=== PATIENT | female | born 1995 | race Caucasian/White ===

== ENCOUNTER 2019-04-24 20:03 | Emergency (ER) | payer MEDICARE, MEDICAID ==
[~2019-04-24] VITALS: Ht 165.1 cm; Wt 108.0 kg
[~2019-04-24 20:03] MED LIST: BACTRIM DS 8001 TA1 PO; BACTRIM DS 8001 TAB PO; CARAFATE1 G1 PO; CEPHALEXIN500 M1 PO; CIPRO250 MG PO; CLEOCIN150 MG PO; DOXYCYCLINE100 M4 PO; ELMIRON100 MG PO; FLAGYL500 MG PO; KEFLEX500 MG PO; LIDEX0.05% T; LOMOTIL 0.025 M1 TA1 PO; MACROBID100 M1 PO; MOTRIN800 MG PO; Motrin,Rufen800 MG PO; NKHM; NORCO 325 MG-51 TAB PO; OMEPRAZOLE20 M2 PO; Orphenadrine C100 MG PO; PERIDEX 480 ML480 ML PO; PRENATAL1 TA3 PO; ULTRAM50 MG PO; VIBRAMYCIN100 MG PO; ZOFRAN ODT4 MG SL; ZOFRAN4 MG PO
[2019-04-24 20:38] LABS: BASO % 0.2 % (0.0-1.0); EOS # 0.3 10*3/uL (0.0-0.4); EOS % 2.8 % (1.0-4.0); HEMATOCRIT 38.4 % (37.0-47.0); HEMOGLOBIN 11.9 g/dl (12.0-16.0); LYMPH % 20.2 % (27.0-41.0); MEAN CELL VOLUME 82.2 fl (81.0-99.0); MEAN CORPUSCULAR HGB 25.5 pg (27.0-31.0); MONO # 0.6 10*3/uL (0.1-1.0); MONO % 6.1 % (3.0-9.0); NEUT # 6.8 10*3/uL (2.3-7.9); NEUT % 70.4 % (47.0-73.0); PLATELET COUNT AUTOMATED 275 10*3/uL (130-400); RED BLOOD COUNT 4.67 10*6/uL (4.10-5.10); RED CELL DISTRI WIDTH 14.2 % (0-14.5); WHITE BLOOD COUNT 9.6 10*3/uL (4.8-10.8)
[2019-04-24 20:44] LABS: BILIRUBIN 1+ (NEGATIVE); BLOOD NEGATIVE (NEGATIVE); CLARITY SL CLOUDY (CLEAR); COLOR YELLOW (YELLOW); GLUCOSE NEGATIVE (NEGATIVE); KETONE TRACE (NEGATIVE); LEUKO ESTERASE NEGATIVE (NEGATIVE); NITRITE NEGATIVE (NEGATIVE); PH 5.5 (5.0-9.0); SPECIFIC GRAVITY >= 1.030 (1.005-1.030)
[2019-04-24 20:46] LABS: BACTERIA 1+; EPITHELIAL CELLS 0-2; MUCOUS 1+; WBC 0-2 wbc/hpf (0-5)
[2019-04-24 20:56] LABS: ALBUMIN 3.1 gm/dl (3.1-4.5); ALKALINE PHOSPHATASE 54 U/L (45-117); BUN 4 mg/dl (7-24); CHLORIDE 106 mmol/L (98-107); CREATININE 0.62 mg/dL (0.55-1.02); POTASSIUM 3.5 mmol/L (3.5-5.1); SGOT/AST 9 IU/L (3-35); SGPT/ALT 15 U/L (12-78); SODIUM 138 mmol/L (136-145); TOTAL PROTEIN 7.4 gm/dL (6.4-8.2)
== END 2019-04-24 22:10 | disposition home or self-care (01) ==
LOC: ED 20:03
PROVIDERS: Nurse Practitioner Family
DX: O23.41 Unspecified infection of urinary tract in pregnancy, first trimester (principal); Z3A.13 13 weeks gestation of pregnancy; Z79.2 Long term (current) use of antibiotics; Z79.899 Other long term (current) drug therapy

== ENCOUNTER → 2019-07-16 | Outpatient (CLI) | payer MEDICARE, MEDICAID | END | disposition home or self-care (01) | LOC: US 11:30 | DX: Z34.82 Encounter for supervision of other normal pregnancy, second trimester (principal); Z3A.25 25 weeks gestation of pregnancy ==

== ENCOUNTER → 2019-08-29 | Outpatient (CLI) | payer BC, MEDICARE, MEDICAID | END | disposition home or self-care (01) | LOC: US 14:00 | DX: Z34.93 Encounter for supervision of normal pregnancy, unspecified, third trimester (principal); Z3A.32 32 weeks gestation of pregnancy ==

== ENCOUNTER → 2019-09-23 | Outpatient (CLI) | payer BC, MEDICARE, MEDICAID | END | disposition home or self-care (01) | LOC: US 11:30 | DX: Z34.90 Encounter for supervision of normal pregnancy, unspecified, unspecified trimester (principal); Z3A.35 35 weeks gestation of pregnancy ==

== ENCOUNTER 2019-09-30 13:48 | Emergency (ER) | payer BC, MEDICARE, MEDICAID ==
[~2019-09-30] VITALS: Ht 167.6 cm; Wt 110.7 kg
== END 2019-09-30 14:45 | disposition home or self-care (01) ==
LOC: ED 13:48
DX: O26.893 Other specified pregnancy related conditions, third trimester (principal); N89.8 Other specified noninflammatory disorders of vagina; Z3A.36 36 weeks gestation of pregnancy; Z79.899 Other long term (current) drug therapy; Z79.2 Long term (current) use of antibiotics

== ENCOUNTER → 2020-05-28 | Outpatient (CLI) | payer MEDICARE, MEDICAID | END | disposition home or self-care (01) | LOC: US 11:30 | DX: Z33.1 Pregnant state, incidental (principal); Z3A.11 11 weeks gestation of pregnancy ==

== ENCOUNTER → 2020-10-21 | Outpatient (CLI) | payer MEDICARE, MEDICAID | END | disposition home or self-care (01) | LOC: US 15:00 | PROVIDERS: ATTEND Obstetrics & Gynecology | DX: Z34.83 Encounter for supervision of other normal pregnancy, third trimester (principal); Z3A.32 32 weeks gestation of pregnancy ==

== ENCOUNTER 2020-11-16 13:53 | Emergency (ER) | payer MEDICARE, MEDICAID ==
[~2020-11-16] VITALS: Ht 167.6 cm; Wt 108.0 kg
[2020-11-16] MEDS ORDERED: PROVENTIL HFA6.7 GM INH (14:46)
[2020-11-16] MEDS ORDERED: PREDNISONE20 M1 PO (14:46)
== END 2020-11-16 16:18 | disposition home or self-care (01) ==
LOC: ED 13:53
DX: O26.893 Other specified pregnancy related conditions, third trimester (principal); O99.333 Smoking (tobacco) complicating pregnancy, third trimester; F17.210 Nicotine dependence, cigarettes, uncomplicated; Z3A.35 35 weeks gestation of pregnancy; Z79.899 Other long term (current) drug therapy; Z20.822 Contact with and (suspected) exposure to COVID-19

== ENCOUNTER 2021-08-04 17:41 | Emergency (ER) | payer MEDICARE, OTHER ==
[~2021-08-04] VITALS: Wt 99.8 kg
[~2021-08-04 17:41] MED LIST changes: +PREDNISONE20 M1 PO; +PROVENTIL HFA6.7 GM INH
== END 2021-08-04 18:38 | disposition home or self-care (01) ==
LOC: ED 17:41
DX: O20.9 Hemorrhage in early pregnancy, unspecified (principal); Z79.899 Other long term (current) drug therapy; Z3A.10 10 weeks gestation of pregnancy

== ENCOUNTER 2021-08-04 23:27 | Emergency (ER) | payer OTHER ==
[~2021-08-04] VITALS: Ht 167.6 cm; Wt 99.8 kg
== END 2021-08-05 00:13 | disposition home or self-care (01) ==
LOC: ED 23:27
DX: O03.9 Complete or unspecified spontaneous abortion without complication (principal); Z3A.10 10 weeks gestation of pregnancy; Z79.899 Other long term (current) drug therapy

== ENCOUNTER 2022-02-28 18:15 | Emergency (ER) | payer OTHER | END 2022-02-28 20:24 | disposition left against medical advice (07) | LOC: ED 18:15 | DX: K08.89 Other specified disorders of teeth and supporting structures (principal); Z53.21 Procedure and treatment not carried out due to patient leaving prior to being seen by health care provider ==

== ENCOUNTER 2023-03-13 21:26 | Emergency (ER) | payer OTHER ==
[~2023-03-13] VITALS: Ht 167.6 cm; Wt 104.3 kg
== END 2023-03-13 22:47 | disposition home or self-care (01) ==
LOC: ED 21:26
DX: Z33.1 Pregnant state, incidental (principal); Z98.51 Tubal ligation status; H92.01 Otalgia, right ear; K08.89 Other specified disorders of teeth and supporting structures

== ENCOUNTER 2023-10-04 18:09 | Emergency (ER) | payer OTHER ==
[~2023-10-04] VITALS: Ht 165.1 cm; Wt 99.8 kg
== END 2023-10-04 21:07 | disposition home or self-care (01) ==
LOC: ED 18:09
DX: S93.402A Sprain of unspecified ligament of left ankle, initial encounter (principal); Z98.51 Tubal ligation status; W18.40XA Slipping, tripping and stumbling without falling, unspecified, initial encounter; Y93.01 Activity, walking, marching and hiking; Y92.89 Other specified places as the place of occurrence of the external cause; Y99.8 Other external cause status

== ENCOUNTER 2024-09-06 22:54 | Emergency (ER) | payer MEDICARE ==
[~2024-09-06] VITALS: Ht 167.6 cm; Wt 95.3 kg
[2024-09-07] MEDS ORDERED: MEDROL DOSEPAK4 MG PO (00:39)
== END 2024-09-07 00:42 | disposition home or self-care (01) ==
LOC: ED 22:54
DX: B34.9 Viral infection, unspecified (principal); Z20.822 Contact with and (suspected) exposure to COVID-19; Z98.51 Tubal ligation status

== ENCOUNTER 2024-11-24 20:14 | Emergency (ER) | payer MEDICARE ==
[~2024-11-24] VITALS: Ht 167.6 cm; Wt 98.0 kg
[~2024-11-24 20:14] MED LIST changes: +MEDROL DOSEPAK4 MG PO
[2024-11-24] MEDS ORDERED: methylPREDNISolone sod succ 125 MG VIAL IM ONE (21:40)
[2024-11-24] MEDS ORDERED: PREDNISONE20 M1 PO (21:58)
[2024-11-24] MEDS ORDERED: ZITHROMAX250 MG PO (21:58)
== END 2024-11-24 21:58 | disposition home or self-care (01) ==
LOC: ED 20:14
DX: B34.9 Viral infection, unspecified (principal); Z20.822 Contact with and (suspected) exposure to COVID-19; Z98.51 Tubal ligation status

== ENCOUNTER 2025-03-07 07:55 | Emergency (ER) | payer MEDICARE ==
[~2025-03-07] VITALS: Ht 167.6 cm; Wt 96.2 kg
[~2025-03-07 07:55] MED LIST changes: +ZITHROMAX250 MG PO
[2025-03-07] MEDS ORDERED: ACETAMINOPHEN 325 MG TAB PO ONE (08:45)
[2025-03-07 09:04] LABS: BASO % 0.4 % (0.0-1.0); EOS # 0.2 10*3/uL (0.0-0.4); EOS % 2.8 % (1.0-4.0); HEMATOCRIT 38.8 % (37.0-47.0); MEAN CELL VOLUME 80.2 fl (81.0-99.0); MEAN CORPUSCULAR HGB 24.6 pg (27.0-31.0); MEAN CORPUSCULAR HGB CONC 30.7 g/dl (33.0-37.0); MEAN PLATELET VOLUME 10.8 fl (9.6-12.3); MONO # 0.6 10*3/uL (0.1-1.0); MONO % 7.5 % (3.0-9.0); NEUT # 5.8 10*3/uL (2.3-7.9); NEUT % 70.3 % (47.0-73.0); PLATELET COUNT AUTOMATED 334 10*3/uL (130-400); RED BLOOD COUNT 4.84 10*6/uL (4.10-5.10); RED CELL DISTRI WIDTH 12.9 % (0-14.5); WHITE BLOOD COUNT 8.2 10*3/uL (4.8-10.8)
[2025-03-07 09:19] LABS: BUN 7 mg/dl (9-23); CHLORIDE 103 mmol/L (98-107); POTASSIUM 3.7 mmol/L (3.4-5.1)
[2025-03-07] MEDS ORDERED: MELOXICAM15 MG PO (10:50)
== END 2025-03-07 10:53 | disposition home or self-care (01) ==
LOC: ED 07:55
PROVIDERS: Internal Medicine
DX: M94.0 Chondrocostal junction syndrome [Tietze] (principal); M54.9 Dorsalgia, unspecified; Z79.899 Other long term (current) drug therapy

== ENCOUNTER 2025-09-20 02:43 | Emergency (ER) | payer MEDICARE ==
[~2025-09-20] VITALS: Ht 167.6 cm; Wt 96.2 kg
[~2025-09-20 02:43] MED LIST changes: +MELOXICAM15 MG PO
[2025-09-20] MEDS ORDERED: BENZOCAINE 20% 11.9 GM GEL T STA (03:25)
[2025-09-20] MEDS ORDERED: Amoxicillin/Clavulanate Pota 875 MG TAB PO ONE (03:25)
[2025-09-20] MEDS ORDERED: AMOX-CLAV 875-1 EACH PO (03:27)
== END 2025-09-20 03:43 | disposition home or self-care (01) ==
LOC: ED 02:43
DX: K04.7 Periapical abscess without sinus (principal); K02.9 Dental caries, unspecified